=== PATIENT | female | born 1965 | race Caucasian/White ===

== ENCOUNTER → 2022-04-02 | Outpatient (CLI) | payer BC ==
--- NOTE | 2022-04-02 18:16 | MM ---
Reason for Exam: Screening (asymptomatic). Last mammogram was performed 8 year(s) and 11 month(s) ago. Patient History: Menarche at age 14. First Full-Term at age 34. Late child-bearing (after 32). Hysterectomy at age 44. Postmenopausal. Patient has history of breast feeding. Risk Values: Kelsey 5 year model risk: 1.6%. NCI Lifetime model risk: 11.4%. Prior Study Comparison: 04/20/2013 Bilateral MG screening mammo w CAD - 2, [facility]. Tissue Density: The breast tissue is heterogeneously dense. This may lower the sensitivity of mammography. Findings: Analyzed By CAD. Pattern appears stable. There is focal asymmetry within the left upper 12 to 1:00 position right breast. No suspicious groups of microcalcifications, spiculated or lobular masses, architectural distortion or other secondary signs of malignancy are mammographically apparent. Overall Assessment: Benign, BI-RAD 2 Management: Screening Mammogram of both breasts in 1 year. A negative mammogram report should not preclude additional follow up of suspicious palpable abnormalities. Patient should continue monthly self breast exam. A clinical breast exam by your physician is recommended on an annual basis and results should be correlated with mammographic findings. Electronically signed and approved by: Bandar Tucker D.O. Radiologis
== END | disposition home or self-care (01) ==
LOC: RADMAMWWP 06:57
PROVIDERS: ATTEND Family Medicine
DX: Z12.31 Encounter for screening mammogram for malignant neoplasm of breast (principal); Z78.0 Asymptomatic menopausal state
CPT/HCPCS: 77067